=== PATIENT | male | born 1995 | race Two or more races ===

== ENCOUNTER 2019-12-22 20:53 | Emergency (ER) | payer MEDICAID, OTHER ==
[~2019-12-22] VITALS: Ht 175.3 cm; Wt 54.4 kg
[2019-12-22] MEDS: PEG 3350/NA SULF,BICARB,CL/KCL 4,000 ML BOTTLE PO ONE (00:25)
--- NOTE | 2019-12-22 21:15 | NUR ---
BIBEMS C/O HEROIN OVERDOSE "I SWALLOWED A BAG OF 3GM HEROIN 4HRS AGO, I SAW A DIE TURNER & I GOT NERVOUS SO I SWALLOWED IT." PT DENIES SI/HI. PT CURRENTLY ALERT AND RESPONSIVE. PLACED IN BED 1 ON MONITOR . VSS. REPORTED MILD TINGLING SENSATION ON HIS HANDS . WILL CONT TO MONITOR ,
--- NOTE | 2019-12-22 21:25 | NUR ---
SPOKE WITH DILLON FROM POISON CONTROL. RECOMMENDATIONS: CT ABDOMEN, ONLY ADMINISTER GOLYTELY IF BAG OF HEROINE IS SEEN IN SCAN MONITOR FOR [address] HECTOR AND ELISHA MARTINO MADE AWARE
--- NOTE | 2019-12-22 21:26 | NUR ---
x ray at bed side
[2019-12-22 21:39] LABS: BASOPHILS % (AUTO) 0.4 % (0.0-2.0); EOSINOPHILS % (AUTO) 0.1 % (0.0-6.0); HEMATOCRIT 38 % (39-51); HEMOGLOBIN 12.7 g/dL (13.5-17.5); LYMPHOCYTES # (AUTO) 1.6 /CMM (0.8-4.8); LYMPHOCYTES % (AUTO) 16.4 % (20.0-44.0); MEAN CORPUSCULAR HGB CONC 33 g/dl (31.0-36.0); MEAN CORPUSCULAR VOLUME 84 fL (80-96); MONOCYTES # (AUTO) 0.5 /CMM (0.1-1.30); MONOCYTES % (AUTO) 5.1 % (2.0-12.0); NEUTROPHILS # (AUTO) 7.4 /CMM (1.8-8.9); PLATELET COUNT (AUTO) 136 /CMM (150-450); RED BLOOD CELL COUNT(AUTO) 4.57 MIL/uL (4.5-6.0); WHITE BLOOD COUNT (AUTO) 9.4 K/uL (4.3-11.0)
--- NOTE | 2019-12-22 21:41 | NUR ---
covid swab done. sent to lab
--- NOTE | 2019-12-22 21:51 | NUR ---
PT WAS TAKEN TO CT
[2019-12-22 21:58] LABS: CALCIUM, SERUM 9.5 mg/dL (8.5-10.1); CARBON DIOXIDE 29 mmol/L (21-32); CHLORIDE 101 mmol/L (98-107); CREATININE 1.1 mg/dL (0.6-1.3); GLUCOSE 134 mg/dL (74-106); POTASSIUM 3.8 mmol/L (3.5-5.1); SODIUM SERUM 138 mmol/L (136-145); UREA NITROGEN, BLOOD 20 mg/dL (7-18)
[2019-12-22 22:07] LABS: ALANINE AMINOTRANSFERASE 18 U/L (12-78); ALBUMIN 4.1 g/dL (3.4-5.0); ALCOHOL, BLOOD < 3 mg/dL (0-0); ALKALINE PHOSPHATASE 78 U/L (46-116); ASPARTATE AMINOTRANSFERASE 20 U/L (15-37); BILIRUBIN,DIRECT 0.1 mg/dL (0.0-0.2); BILIRUBIN,TOTAL 0.5 mg/dL (0.2-1.0); TOTAL PROTEIN, SERUM 7.5 g/dL (6.4-8.2)
[2019-12-22 22:10] LABS: ACETAMINOPHEN < 2 ug/ml (10-30)
--- NOTE | 2019-12-22 22:41 | NUR ---
URINE COLLECTED AND SENT TO LAB
[2019-12-22 22:51] LABS: BILIRUBIN,URINE MODERATE (NEGATIVE); BLOOD, URINE Negative Ery/uL (NEGATIVE); COLOR,URINE Yellow (YELLOW); LEUKOCYTE ESTERASE ,URINE Negative (NEGATIVE); NITRITE, URINE Negative (NEGATIVE); PH,URINE 5.5 (5.0-8.0); PROTEIN,URINE 100 mg/dl (NEGATIVE); UGLUCOSE Negative (NEGATIVE); UROBILINOGEN,URINE 0.2 EU/dL (0.2)
[2019-12-22 23:03] LABS: BACTERIA,URINE Rare /HPF (None Seen); RBC,URINE NONE SEEN /HPF (0-2); SQUAMOUS EPITHELIAL CELL,UR Few /HPF (None Seen); WBC,URINE NONE SEEN /HPF (0-3)
--- NOTE | 2019-12-22 23:27 | NUR ---
Patient is resting comfortably in bed with eyes closed. Easily aroused. VSS
--- NOTE | 2019-12-22 23:49 | NUR ---
SPOKE WITH CHAPINCITO FROM POISON CONTROL AND GAVE UPDATE INFORMATION ON PT STATUS
[2019-12-23] MEDS ORDERED: PEG 3350/NA SULF,BICARB,CL/KCL 4,000 ML BOTTLE ONE ×2 (00:01)
[2019-12-23] MEDS: PEG 3350/NA SULF,BICARB,CL/KCL 4,000 ML BOTTLE PO ONE (00:25)
--- NOTE | 2019-12-23 01:11 | NUR ---
pt in bed resting w/ closed eyes. denied any discomfort. no distress noted. pt was encouraged to drink the golytely solution. remained on continuous monitoring w/ stable VS.
--- NOTE | 2019-12-23 02:14 | NUR ---
PT IN BED AWAKE AND ALERT. TAKING SIPS OF GOLYTELY SLOWLY. BREATHING EVENLY. NO SOB. NO ACUTE DISTRESS. DENIED ANY PAIN OR DISCOMFORT. VSS. REPORTED "I'M FEELING PERFECT AND WANNA LWAVE."
--- NOTE | 2019-12-23 03:45 | NUR ---
pt, awake, alert and ambulatory with steady gait. VSS. willing to leave the hospital. medically stable for discharge per MD. IV removed. Catheter intact and site benign. Pressure and 4x4 applied to site. No bleeding noted. Patient discharged to home in stable condition. Rx and Written and verbal after care instructions given. Patient verbalizes understanding of instruction. girl friend provided ride to the pt.
[2019-12-23 03:52] VITALS: BP 96/64
== END 2019-12-23 03:52 | disposition home or self-care (01) ==
LOC: ER 20:56
DX: T18.2XXA Foreign body in stomach, initial encounter (principal); X58.XXXA Exposure to other specified factors, initial encounter; Y93.89 Activity, other specified; Y92.89 Other specified places as the place of occurrence of the external cause; F19.10 Other psychoactive substance abuse, uncomplicated; F11.10 Opioid abuse, uncomplicated; Z20.828 Contact with and (suspected) exposure to other viral communicable diseases; R94.31 Abnormal electrocardiogram [ECG] [EKG]; D64.9 Anemia, unspecified; D69.6 Thrombocytopenia, unspecified; R00.0 Tachycardia, unspecified
CPT/HCPCS: 36415; 71045; 74018; 74176; 80048; 80076; 80299; 80307; 80320; 81001; 85025; 87426; 93005; 99285; C9803; 81000-TC; G0480